=== PATIENT | male | born 1985 | race Caucasian/White ===

== ENCOUNTER 2017-03-14 01:48 | Emergency (ER) | payer OTHER ==
[~2017-03-14] VITALS: Ht 182.9 cm; Wt 75.0 kg
[~2017-03-14 01:48] MED LIST: 1-ME1LIQ PO; AMOX500T PO; HYDR50TA15 PO; IBUP1TAB7 PO; IBUP600 PO; ZOFR4TAB3 SL
[2017-03-14 01:52] VITALS: BP 140/86; PULSE 104; RESP 18; TEMP 98.2; O2SAT 100
--- NOTE | 2017-03-14 02:50 | RADRPT ---
EXAM DATE/TIME: 03/14/2017 02:12 [place] COMPARISON: No previous studies available for comparison. INDICATIONS : Altered mental status. Loss of memory. RADIATION DOSE: 56.35 CTDIvol (mGy) MEDICAL HISTORY : None SURGICAL HISTORY : None. ENCOUNTER: Initial ACUITY: 1 day PAIN SCALE: 0/10 LOCATION: cranial TECHNIQUE: Multiple contiguous axial images were obtained of the head. Using automated exposure control and adj ustment of the mA and/or kV according to patient size, radiation dose was kept as low as reasonably a chievable to obtain optimal diagnostic quality images. DICOM format image data is available electro nically for review and comparison. FINDINGS: CEREBRUM: The ventricles are normal for age. No evidence of midline shift, mass lesion, hemorrhage or acute in farction. No extra-axial fluid collections are seen. POSTERIOR FOSSA: The cerebellum and brainstem are intact. The 4th ventricle is midline. The cerebellopontine angle i s unremarkable. EXTRACRANIAL: The visualized portion of the orbits is intact. SKULL: The calvaria is intact. No evidence of skull fracture. CONCLUSION: Negative noncontrast head CT Jamison Cotton MD on March 14, 2017 at 2:48 Board Certified Radiologist. This report was verified electronically.
[2017-03-14 03:03] LABS: AUTOMATED NEUTROPHIL # 4.5 TH/MM3 (1.8-7.7); BASOPHIL # 0.1 TH/MM3 (0-0.2); BASOPHIL % 1.1 % (0.0-2.0); EOSINOPHIL # 0.2 TH/MM3 (0-0.4); EOSINOPHIL % 2.1 % (0.0-4.0); HEMATOCRIT 40.2 % (39.0-51.0); HEMO FLAGS DIFF FINAL; LYMPH % 35.5 % (9.0-44.0); LYMPHOCYTE # 3.1 TH/MM3 (1.0-4.8); MEAN CELL VOLUME 91.3 FL (80.0-100.0); MONO % 9.5 % (0.0-8.0); NEUT % 51.8 % (16.0-70.0); PLATELET COUNT 240 TH/MM3 (150-450); RED CELL DISTRIBUTION WIDTH 12.9 % (11.6-17.2); WHITE BLOOD COUNT 8.6 TH/MM3 (4.0-11.0)
[2017-03-14 03:18] LABS: ALT (GPT) 53 U/L (12-78); ANION GAP 7 MEQ/L (5-15); AST (GOT) 30 U/L (15-37); BLOOD UREA NITROGEN 18 MG/DL (7-18); CHLORIDE 102 MEQ/L (98-107); GLOMERULAR FILTRATION RATE 85 ML/MIN (>89); POTASSIUM 3.7 MEQ/L (3.5-5.1); SODIUM (NA) 139 MEQ/L (136-145)
[2017-03-14 03:28] LABS: ALKALINE PHOSPHATASE 53 U/L (45-117); TOTAL BILIRUBIN ADULT 1.2 MG/DL (0.2-1.0)
--- NOTE | 2017-03-14 03:52 | PD ---
HPI Chief Complaint: Medical Clearance Time Seen by Provider: 02:05 Travel History International Travel<30 days: No Contact w/Intl Traveler<30days: No Traveled to known affect area: No History of Present Illness HPI Patient is a 31 year old male who comes in complaining of memory loss. He says he was talking to his friend zaire, at 11:30PM, and he does not remember the conversation. He says he has not been sleeping well at night. He reports trying to fall asleep, but being unable to. He also says he has been having heartburn. He states when he is unable to fall asleep, he tries doing push-ups and eating. He is concerned he is having a stroke. He denies chest pain or SOB. He denies any numbness or tingling. He denies any weakness. PFSH Past Medical History Blood Disorders: No Depression: Yes Cancer: No Cardiovascular Problems: No Diminished Hearing: No Endocrine: No GERD: Yes Genitourinary: No Headaches: Yes Immune Disorder: No Musculoskeletal: Yes (CHRONIC LOW BACK PAIN, SEES PAIN MGMT IN [facility]) Neurologic: Yes Psychiatric: Yes Reproductive: No Respiratory: No Seizures: Yes (NEW ONSET APPROX 1.5 YRS AGO) Thyroid Disease: No Ulcer: No ?: Not Past Surgical History Abdominal Surgery: Yes (RIGHT GROIN HERNIA REPAIR 1989) Endocrine Surgery: No Eye Surgery: No Genitourinary Surgery: Yes (HERNIA SURG AT 5 YRS OLD) Gynecologic Surgery: Yes (LEFT TESTICLE 1989) Oral Surgery: No Other Surgery: Yes Social History Alcohol Use: Yes (SOCIALLY) Tobacco Use: Yes (1-2 CIGS A DAY) Substance Use: Yes (MARIJUANA FREQ.) Allergies-Medications (Allergen,Severity, Reaction): Coded Allergies: alprazolam (Verified Allergy, Severe, 03/14/17) SEIZURES Reported Meds & Prescriptions Reported Meds & Active Scripts Active No Active Prescriptions or Reported Medications Review of Systems Except as stated in HPI: all other systems reviewed are Neg General / Constitutional: No: Fever, Chills Eyes: No: Blurred Vision HENT: No: Headaches, Lightheadedness Cardiovascular: No: Chest Pain or Discomfort, Palpitations Respiratory: No: Shortness of Breath Gastrointestinal: No: Nausea, Vomiting Musculoskeletal: No: Myalgias, Edema Skin: No Rash, No Change in Pigmentation, No Lesions Neurologic: No: Weakness, Dizziness, Paresthesia, Sensory Disturbance Physical Exam Narrative GENERAL: Awake and alert, in no acute distress. SKIN: Focused skin assessment warm/dry. No wounds or signs of infection. HEAD: Atraumatic. Normocephalic. EYES: Pupils equal and round. No scleral icterus. EOMI. ENT: Mucous membranes pink and moist. NECK: Trachea midline. No JVD. CARDIOVASCULAR: Regular rate and rhythm. No murmur appreciated. RESPIRATORY: No accessory muscle use. Clear to auscultation. Breath sounds equal bilaterally. GASTROINTESTINAL: Abdomen soft, non-tender, nondistended. MUSCULOSKELETAL: No obvious deformities. No clubbing. No cyanosis. No edema. NEUROLOGICAL: Awake and alert. No obvious cranial nerve deficits. Motor grossly within normal limits. Normal speech. PSYCHIATRIC: Appropriate mood and affect; insight and judgment normal. Data Data Last Documented VS Vital Signs Date Time Temp Pulse Resp B/P (MAP) Pulse Ox O2 Delivery O2 Flow Rate FiO2 03/14/17 01:52 98.2 104 18 140/86 (104) 100 Orders Orders Iv Access Insert/Monitor (03/14/17 02:14) Complete Blood Count With Diff (03/14/17 02:14) Comprehensive Metabolic Panel (03/14/17 02:14) Ct Brain W/O Iv Contrast(Rout) (03/14/17 ) Thyroid Stimulating Hormone (03/14/17 02:14) Labs Laboratory Tests Test 03/14/17 02:45 White Blood Count 8.6 TH/MM3 Red Blood Count 4.40 MIL/MM3 Hemoglobin 14.1 GM/DL Hematocrit 40.2 % Mean Corpuscular Volume 91.3 FL Mean Corpuscular Hemoglobin 32.0 PG Mean Corpuscular Hemoglobin Concent 35.0 % Red Cell Distribution Width 12.9 % Platelet Count 240 TH/MM3 Mean Platelet Volume 8.4 FL Neutrophils (%) (Auto) 51.8 % Lymphocytes (%) (Auto) 35.5 % Monocytes (%) (Auto) 9.5 % Eosinophils (%) (Auto) 2.1 % Basophils (%) (Auto) 1.1 % Neutrophils # (Auto) 4.5 TH/MM3 Lymphocytes # (Auto) 3.1 TH/MM3 Monocytes # (Auto) 0.8 TH/MM3 Eosinophils # (Auto) 0.2 TH/MM3 Basophils # (Auto) 0.1 TH/MM3 CBC Comment DIFF FINAL Differential Comment Blood Urea Nitrogen 18 MG/DL Creatinine 1.03 MG/DL Random Glucose 111 MG/DL Total Protein 7.0 GM/DL Albumin 3.8 GM/DL Calcium Level 8.1 MG/DL Alkaline Phosphatase 53 U/L Aspartate Amino Transf (AST/SGOT) 30 U/L Alanine Aminotransferase (ALT/SGPT) 53 U/L Total Bilirubin 1.2 MG/DL Sodium Level 139 MEQ/L Potassium Level 3.7 MEQ/L Chloride Level 102 MEQ/L Carbon Dioxide Level 30.0 MEQ/L Anion Gap 7 MEQ/L Estimat Glomerular Filtration Rate 85 ML/MIN Thyroid Stimulating Hormone 3rd Gen 1.400 uIU/ML MDM Medical Decision Making Medical Screen Exam Complete: Yes Emergency Medical Condition: Yes Medical Record Reviewed: Yes Differential Diagnosis insomnia vs fatigue vs electrolyte abnormalities vs hypothyroid Narrative Course Patient is a 31 year old male who comes in complaining of memory loss. He has no neurologic abnormalities on exam. IV established, labs sent. Labs show no acute abnormalities. CT head performed shows no acute abnormalities. Patient sleeping in the stretched. Advised to go home and rest. Advised to follow up with a primary care doctor. Advised to return to the ED as needed for any worsening symptoms. Diagnosis Primary Impression: Insomnia Qualified Codes: G47.00 - Insomnia, unspecified Additional Impression: Memory difficulties Referrals: [facility] call for appointment Additional Instructions: Follow up with a primary care doctor. Get plenty of rest. Return to the ED as needed for any worsening symptoms. Scripts No Active Prescriptions or Reported Meds Disposition: 01 DISCHARGE HOME Condition: Stable Brigid Salter MD Mar 14, 2017 03:52
[2017-03-14 04:00] VITALS: BP 136/71
== END 2017-03-14 04:07 | disposition home or self-care (01) ==
LOC: NEPE 01:48
DX: G47.00 Insomnia, unspecified (principal); R41.3 Other amnesia; F32.9 Major depressive disorder, single episode, unspecified; K21.9 Gastro-esophageal reflux disease without esophagitis; R56.9 Unspecified convulsions; F17.210 Nicotine dependence, cigarettes, uncomplicated; Z88.8 Allergy status to other drugs, medicaments and biological substances
CPT/HCPCS: 70450; 80053; 84443; 85025; 99285